=== PATIENT | male | born 1955 | race Caucasian/White ===

== ENCOUNTER 2017-06-13 12:10 | Emergency (ER) | payer BC ==
[~2017-06-13] VITALS: Ht 167.6 cm; Wt 65.0 kg
[~2017-06-13 12:10] MED LIST: ALLEGRA180 MG PO; LIPITOR40 M1 PO; PERCOCET 5/325M1 TAB PO; ZYRTEC10 MG PO
[2017-06-13 15:28] LABS: HEMATOCRIT 39.7 % (39.0-50.0); HEMOGLOBIN 13.5 g/dl (14.0-18.0); IMMATURE GRANULOCYTES 0.5 % (0.0-1.0); MEAN CELL VOLUME 92.5 fL CALC (80.0-100.0); MEAN CORPUSCULAR HGB 31.5 pG CALC (26.0-32.0); NEUT# 6.78 thou/uL (1.82-7.42); RED BLOOD COUNT 4.29 mill/uL (4.70-6.10); RED CELL DISTRI WIDTH 12.2 % (11.5-15.5)
[2017-06-13 15:56] LABS: ALBUMIN 4.1 g/dL (3.2-5.0); ALKALINE PHOSPHATASE 93 u/l (38-126); AMYLASE 59 u/l (30-110); ANION GAP 17 (6-22 (CALC)); BILIRUBIN, TOTAL 0.6 mg/dL (0.0-1.4); BUN 19 mg/dL (8-23); BUN/CREATININE RATIO 20 (12-20 (CALC)); CALCIUM 9.8 mg/dL (8.4-10.2); CARBON DIOXIDE 26 mmol/l (22-30); CHLORIDE 103 mmol/l (95-108); GFR > 60 ML/MIN (>=60 (CALC)); GFR FOR AFR.AMER. > 60 ML/MIN (>=60 (CALC)); GLUCOSE 112 mg/dL (82-115); LIPASE 212 u/l (23-300); POTASSIUM 4.7 mmol/l (3.5-5.1); SGOT/AST 34 u/l (19-48); SGPT/ALT 64 u/l (11-66); SODIUM 141 mmol/l (137-146); TOTAL PROTEIN 6.6 g/dL (6.3-8.2)
[2017-06-13 16:05] LABS: MYOGLOBIN 33 ng/mL (0 - 121)
[2017-06-13 16:33] LABS: URINE BILIRUBIN - DIPSTICK NEGATIVE (NEGATIVE); URINE BLOOD DIPSTICK NEGATIVE (NEGATIVE); URINE COLOR YELLOW; URINE GLUCOSE - DIPSTICK NEGATIVE (NEGATIVE); URINE KETONE NEGATIVE (NEGATIVE); URINE LEUK ESTERASE NEGATIVE (NEGATIVE); URINE NITRITE - DIPSTICK NEGATIVE (Negative); URINE PH 5.5 (4.5-8.0); URINE PROTEIN - DIPSTICK NEGATIVE (NEG-TRACE); URINE SPECIFIC GRAVITY 1.025; URINE UROBILINOGEN - DIPSTICK 0.2 E.U./dL (0.2)
[2017-06-13 16:44] LABS: URINE CLARITY CLEAR
[2017-06-13 19:32] VITALS: BP 90/56
== END 2017-06-13 19:35 | disposition home or self-care (01) | DRG 948 ==
LOC: ED 12:10
PROVIDERS: Emergency Medicine
DX: R53.1 Weakness (principal); R61 Generalized hyperhidrosis; Z95.2 Presence of prosthetic heart valve

== ENCOUNTER 2019-05-25 07:03 | Day surgery (SDC) | payer MEDICARE ==
[~2019-05-25] VITALS: Ht 167.6 cm; Wt 70.8 kg
[~2019-05-25 07:03] MED LIST changes: +ASPIRIN81 MG PO; +METOPROLOL50 M1 PO; +OMEPRAZOLE20 M2 PO
[2019-05-25 09:24] VITALS: BP 144/80
== END 2019-05-25 09:28 | disposition home or self-care (01) ==
LOC: ENDO 07:03 → ORM 09:00 → ENDO 09:00
PROVIDERS: ATTEND Surgery
PROC: 0DB48ZX Excision of Esophagogastric Junction, Via Natural or Artificial Opening Endoscopic, Diagnostic (ICD-10-PCS; principal; 2019-05-25)
DX: K21.0 Gastro-esophageal reflux disease with esophagitis (principal); K44.9 Diaphragmatic hernia without obstruction or gangrene; Z79.899 Other long term (current) drug therapy

== ENCOUNTER 2021-04-14 09:04 | Emergency (ER) | payer MEDICARE ==
[~2021-04-14] VITALS: Ht 170.2 cm; Wt 73.6 kg
[2021-04-14] MEDS ORDERED: FLEXERIL5 M1 PO (10:51)
[2021-04-14] MEDS ORDERED: PERCOCET 5/321 COMBO PO (10:51)
[2021-04-14] MEDS ORDERED: TORADOL PO (10:51)
[2021-04-14 11:02] VITALS: BP 138/85
== END 2021-04-14 10:55 | disposition home or self-care (01) ==
LOC: ED 09:04
DX: M25.512 Pain in left shoulder (principal); M25.511 Pain in right shoulder; M25.552 Pain in left hip; M25.551 Pain in right hip; Z95.2 Presence of prosthetic heart valve

== ENCOUNTER 2021-12-27 08:49 | Day surgery (SDC) | payer MEDICARE ==
[~2021-12-27] VITALS: Ht 167.6 cm; Wt 70.8 kg
[~2021-12-27 08:49] MED LIST changes: +FLEXERIL5 M1 PO; +HYDROXYCHLOR200 M2 PO; +MELOXICAM15 MG PO; +OMEPRAZOLE20 MG PO; +PERCOCET 5/321 COMBO PO; +PREDNISONE20 MG PO; +TORADOL PO
[2021-12-27 10:08] LABS: CREATININE 1.1 mg/dL (0.7-1.3)
[2021-12-27] MEDS ORDERED: OMEPRAZOLE20 MG PO (10:39)
[2021-12-27] MEDS ORDERED: CARAFATE PO (10:39)
[2021-12-27 11:07] VITALS: BP 125/76
== END 2021-12-27 12:33 | disposition home or self-care (01) ==
LOC: ENDO 08:49 → ORM 09:55 → ENDO 12:33
PROVIDERS: ATTEND Surgery
PROC: 0DB68ZX Excision of Stomach, Via Natural or Artificial Opening Endoscopic, Diagnostic (ICD-10-PCS; principal; 2021-12-27)
DX: K21.9 Gastro-esophageal reflux disease without esophagitis (principal); K44.9 Diaphragmatic hernia without obstruction or gangrene; K31.7 Polyp of stomach and duodenum; M06.9 Rheumatoid arthritis, unspecified; Z95.2 Presence of prosthetic heart valve; Z79.899 Other long term (current) drug therapy
CPT/HCPCS: Q9967

== ENCOUNTER 2022-01-15 08:26 | Emergency (ER) | payer MEDICARE ==
[2022-01-15] VITALS (9 sets, daily range): BP systolic 143–172; BP diastolic 71–83
[~2022-01-15] VITALS: Ht 167.6 cm; Wt 72.0 kg
[~2022-01-15 08:26] MED LIST changes: +CARAFATE PO
[2022-01-15 08:59] LABS: HEMATOCRIT 45.8 % (39.0-50.0); HEMOGLOBIN 15.4 g/dl (14.0-18.0); IMMATURE GRANULOCYTES 0.2 % (0.0-5.0); MEAN CELL VOLUME 93.3 fL CALC (80.0-100.0); MEAN CORPUSCULAR HGB 31.4 pG CALC (26.0-32.0); MEAN CORPUSCULAR HGB CONC 33.6 g/dL CAL (32.0-36.0); NEUT# 5.39 thou/uL (1.82-7.42); RED BLOOD COUNT 4.91 mill/uL (4.70-6.10); RED CELL DISTRI WIDTH 12.5 % (11.5-15.5)
[2022-01-15 09:25] LABS: ALBUMIN 4.2 g/dL (3.2-5.0); ALKALINE PHOSPHATASE 85 u/l (38-126); AMYLASE 82 u/l (30-110); ANION GAP 10 (6-22 (CALC)); BILIRUBIN, TOTAL 0.9 mg/dL (0.0-1.4); BUN 18 mg/dL (8-23); BUN/CREATININE RATIO 16 (12-20 (CALC)); CARBON DIOXIDE 29 mmol/l (22-30); CHLORIDE 102 mmol/l (95-108); CREATININE 1.1 mg/dL (0.7-1.3); GFR FOR AFR.AMER. > 60 ML/MIN (>=60 (CALC)); GFR OTHER RACES > 60 ML/MIN (>=60 (CALC)); LIPASE 91 u/l (23-300); POTASSIUM 3.4 mmol/l (3.5-5.1); SGOT/AST 37 u/l (19-48); SODIUM 138 mmol/l (137-146); TOTAL PROTEIN 6.8 g/dL (6.3-8.2)
[2022-01-15 10:03] LABS: URINE BILIRUBIN - DIPSTICK NEGATIVE (NEGATIVE); URINE BLOOD DIPSTICK NEGATIVE (NEGATIVE); URINE COLOR YELLOW; URINE GLUCOSE - DIPSTICK NEGATIVE (NEGATIVE); URINE KETONE NEGATIVE (NEGATIVE); URINE LEUK ESTERASE NEGATIVE (NEGATIVE); URINE PROTEIN - DIPSTICK NEGATIVE (NEG-TRACE); URINE SPECIFIC GRAVITY >=1.030; URINE UROBILINOGEN - DIPSTICK 0.2 E.U./dL (0.2)
[2022-01-15 10:14] LABS: URINE NITRITE - DIPSTICK NEGATIVE (Negative)
[2022-01-15] MEDS ORDERED: PEPCID AC20 M1 PO (10:33)
== END 2022-01-15 10:55 | disposition home or self-care (01) ==
LOC: ED 08:26
PROVIDERS: Family Medicine
DX: R10.13 Epigastric pain (principal); I10 Essential (primary) hypertension; K21.9 Gastro-esophageal reflux disease without esophagitis; K44.9 Diaphragmatic hernia without obstruction or gangrene; Z95.2 Presence of prosthetic heart valve; Z79.899 Other long term (current) drug therapy
CPT/HCPCS: Q9967